=== PATIENT | male | born 1990 | race Two or more races ===

== ENCOUNTER 2023-10-26 17:09 | Emergency (ER) | payer MEDICAID ==
[~2023-10-26] VITALS: Ht 170.2 cm; Wt 75.0 kg
[2023-10-26 17:53] VITALS: BP 115/67; RESP 18
[2023-10-26 17:54] VITALS: PULSE 74; O2SAT 96
== END 2023-10-26 18:55 | disposition left against medical advice (07) ==
LOC: ER 17:09 → EDBD 17:09 → ER 18:55
DX: R56.9 Unspecified convulsions (principal)